=== PATIENT | female | born 1970 | race Caucasian/White ===

== ENCOUNTER 2018-06-09 05:00 | Day surgery (SDC) | payer OTHER ==
[2018-06-04 16:03] VITALS: BMI 25.5
--- NOTE | 2018-06-09 00:49 | HP ---
History & Physical Update - History History: No Change - Physical Physical: No Change - Assessment Assessment: No Change - Plan Plan: No Change (No change in HP)
[~2018-06-09 05:00] MED LIST: ACETAMINOPHEN 325 MG TABLET (FP) PO PRN; IBUPROFEN 400 MG TABLET (FP) PO PRN; LACTATED RINGERS SOLUTION 1,000 ML IV SCH
[2018-06-09] MEDS ORDERED: MIDAZOLAM HCL 2 MG/2 ML SINGLE DOSE VIAL ONE (07:56)
[2018-06-09] MEDS ORDERED: DEXAMETHASONE SOD PHOSPHATE 4 MG/1 ML VIAL ONE (08:07)
[2018-06-09] MEDS ORDERED: PROPOFOL 20 ML ONE (08:08)
[2018-06-09] MEDS ORDERED: ONDANSETRON 4 MG/2 ML VIAL IVPUSH PRN (08:42)
[2018-06-09] MEDS ORDERED: oxyCODONE HCL 5 MG TABLET PO PRN (08:42)
[2018-06-09] MEDS ORDERED: LACTATED RINGERS SOLUTION 1,000 ML IV SCH (08:45)
--- NOTE | 2018-06-09 09:38 | OP ---
Operative Note - Note: Operative Date: 06/09/18 Pre-Operative Diagnosis: Submucosal myoma. Abnormal bleeding Operation: Hysteroscopic Myomectomy. Suction DC Findings: Endometrial polyps Submucosal myomas Post-Operative Diagnosis: Same as Pre-op Surgeon: Christy Valenzuela Anesthesia: General Estimated Blood Loss (mls): 40 Operative Report Dictated: Yes
[2018-06-09 10:59] VITALS: TEMP 97.8
[2018-06-09 11:30] VITALS: BP 127/82; PULSE 62
--- NOTE | 2018-06-09 19:30 | OP ---
DATE OF OPERATION: 06/09/2018 PREOPERATIVE DIAGNOSES: Submucosal myoma, abnormal bleeding. OPERATION: Hysteroscopy myomectomy, suction dilatation and curettage. POSTOPERATIVE DIAGNOSES: Submucosal myomas and endometrial polyps. SURGEON: Christy Valenzuela MD ANESTHESIA: General. ESTIMATED BLOOD LOSS: 40 mL PROCEDURE: Patient was taken to the operating room, placed in dorsal lithotomy position, prepped and draped in usual sterile fashion. Timeout was performed in accordance to hospital regulation. Speculum was placed in the vagina. Anterior lip of the cervix grasped with single-tooth tenaculum. Cervix then dilated to accommodate the operative hysteroscope. Operative hysteroscope was inserted, and visualization revealed endometrial polyps and submucosal myoma. Cautery and cutting of the endometrial polyps and myomas were done. Multiple myomas were removed, followed by suction D&C. This procedure was repeated at least 3 times to remove all the polyps and myomas removed. Most of the endometrial cavity was seen to be much improved after 3 passes of removal of myomas and suction D&C. All instruments were then removed. Patient had tolerated the procedure. Estimated blood loss: 40 mL. Patient was taken to recovery room in stable condition. CHRISTY VALENZUELA M.D. [id number]
--- NOTE | 2018-06-10 11:06 | PATH ---
Surgical Pathology Report Patient Name: OSEAS CHRISTIANSEN [facility]. Rec. #: [id number] /Age/Gender: 1970 (Age: 47) / F Account: [id number] Location: [facility] Taken: 06/09/2018 Received: 06/09/2018 Reported: 06/10/2018 Physicians: Christy Valenzuela M.D. Specimen(s) Received SUBMUCOSAL MYOMA ENDOMETRIAL POLYP Clinical History Submucosal leiomyoma Final Diagnosis SUBMUCOSAL MYOMA/ENDOMETRIAL POLYP, HYSTEROSCOPIC MYOMECTOMY, DILATION AND CURETTAGE: POLYPOID FRAGMENTS OF SECRETORY ENDOMETRIUM, BROAD BUNDLES OF SMOOTH MUSCLE CONSISTENT WITH SUBMUCOSAL LEIOMYOMA, AND SCANT ENDOCERVICAL MUCOSA. Electronically Signed Mally Bosch M.D. Gross Description Received in formalin labeled with the patient's name and indicated on the requisition to be a submucosal myoma and endometrial polyp, is a 6 g, 4.2 x 4.0 x 0.4 cm aggregate of wagner-red, firm to rubbery tissue fragments admixed with mucus. The formalin is filtered and the specimen is entirely submitted in 3 cassettes. DL/06/09/2018 saudi06/09/2018
== END 2018-06-09 11:30 | disposition home or self-care (01) ==
LOC: JASU-SURG 05:00
PROVIDERS: ATTEND Obstetrics & Gynecology
PROC: 0UDB7ZX Extraction of Endometrium, Via Natural or Artificial Opening, Diagnostic (ICD-10-PCS; 2018-06-09)
PROC: 0UJD8ZZ Inspection of Uterus and Cervix, Via Natural or Artificial Opening Endoscopic (ICD-10-PCS; 2018-06-09)
PROC: 0UB98ZZ Excision of Uterus, Via Natural or Artificial Opening Endoscopic (ICD-10-PCS; principal; 2018-06-09 08:00)
PROC: 0UB97ZX Excision of Uterus, Via Natural or Artificial Opening, Diagnostic (ICD-10-PCS; 2018-06-09 08:00)
DX: D25.0 Submucous leiomyoma of uterus (principal); N84.0 Polyp of corpus uteri
CPT/HCPCS: 36415; 84703; 86850; 86900; 86901; 88305-TC; 94760

== ENCOUNTER → 2018-06-24 | Day surgery (SDC) | payer OTHER ==
--- NOTE | 2018-06-25 16:08 | PATH ---
Surgical Pathology Report Patient Name: OSEAS CHRISTIANSEN [facility]. Rec. #: [id number] /Age/Gender: 1970 (Age: 47) / F Account: [id number] Location: [facility]OLOGY [facility] Taken: 06/24/2018 Received: 06/24/2018 Reported: 06/25/2018 Physicians: Jan Guajardo M.D. Specimen(s) Received RIGHT BREAST 3-4:00 MASS Clinical History Probable mass, suspicious ultrasound findings Final Diagnosis RIGHT BREAST, 3 - 4:00, 1.5 CM MASS, ULTRASOUND GUIDED CORE BIOPSY: BREAST TISSUE WITH CELLULAR FIBROADENOMA. Electronically Signed Jose J Wilson M.D. Gross Description Received in formalin labeled "right breast, 3:30" are 4 wagner-yellow, cylindrical portions of fibroadipose tissue ranging from 1.2-1.7 cm in length and averaging 0.1 cm diameter. The specimens are submitted in toto in one cassette. Time from tissue taken to formalin fixation: less than 1 minute Total formalin fixation time: Between 8-9 hours. MLSZ/06/24/2018 sanemir/06/24/2018
== END | disposition home or self-care (01) ==
LOC: JRADUS-SUR 08:38
PROVIDERS: ATTEND Obstetrics & Gynecology
PROC: 0HBT3ZX Excision of Right Breast, Percutaneous Approach, Diagnostic (ICD-10-PCS; principal; 2018-06-24)
DX: D24.1 Benign neoplasm of right breast (principal)
CPT/HCPCS: 19083; 88305-TC; A4648